=== PATIENT | male | born 1960 ===

== ENCOUNTER 2023-01-09 05:30 | Day surgery (SDC) | payer OTHER ==
[~2023-01-09] VITALS: Ht 185.4 cm; Wt 88.5 kg
[~2023-01-09 05:30] MED LIST: ACID REDUCER20 M1 PO; COZAAR50 MG PO; HYOSCYAMINE0.375 M2 PO; INDAPAMIDE2.5 MG PO; POTASSIUM CITR15 MEQ PO; TAMS0.4C PO; ZOCOR40 MG PO
[2023-01-09] MEDS ORDERED: TRAMADOL HCL50 MG PO (09:36)
[2023-01-09] MEDS ORDERED: MIRALAX17 GM PO (09:36)
[2023-01-09] MEDS ORDERED: TYLENOL ARTHRI650 MG PO (09:36)
[2023-01-09] MEDS ORDERED: KETO10TA2 PO (09:36)
== END 2023-01-09 15:25 | disposition home or self-care (01) ==
LOC: CIR.AMB 05:30
PROVIDERS: ATTEND Surgery
DX: K40.20 Bilateral inguinal hernia, without obstruction or gangrene, not specified as recurrent (principal); K42.9 Umbilical hernia without obstruction or gangrene; Z20.822 Contact with and (suspected) exposure to COVID-19; E78.5 Hyperlipidemia, unspecified; I10 Essential (primary) hypertension; N40.0 Benign prostatic hyperplasia without lower urinary tract symptoms
CPT/HCPCS: 49650; 49592; C1781